=== PATIENT | female | born 1975 | race Caucasian/White ===

== ENCOUNTER 2020-02-11 11:16 | Emergency (ER) | payer MEDICAID, SELFPAY ==
--- NOTE | 2020-02-11 | US_ITS ---
EXAMINATION: ULTRASOUND RENAL CLINICAL INFORMATION: Flank pain COMPARISON: CT abdomen and pelvis 05/06/2017 TECHNIQUE: Real-time imaging of the kidneys FINDINGS: RIGHT KIDNEY: No hydronephrosis. No renal calculi or focal parenchymal lesions. The kidney measures 11.6 cm in maximum dimension. There is a 5 x 3 x 4 mm echogenic lesion in the midpole of the right kidney which could reflect a small angiomyolipoma. LEFT KIDNEY: Nonobstructing 4 x 7 x 5 mm calculus in the mid/lower pole of the left kidney.. No hydronephrosis. No renal calculi or focal parenchymal lesions. The kidney measures 11.6 cm in maximum dimension. Incidental note of a well-circumscribed echogenic lesion in the right lobe of the liver measuring 2.1 x 1.5 x 1.4 cm, most likely representing a small hemangioma. IMPRESSION: 1. No hydronephrosis. 2. Nonobstructing 7 mm calculus in the mid/lower pole of the left kidney. 3. Suspect a small 5 mm angiomyolipoma in the midpole of the right kidney. 4. Incidental note of a well-circumscribed echogenic lesion in the liver most likely representing a hemangioma.
--- NOTE | 2020-02-11 | CT_ITS ---
EXAMINATION: CT ABDOMEN AND PELVIS WITH CONTRAST CLINICAL INFORMATION: Abdomen/flank pain COMPARISON: May 06, 2017 TECHNIQUE: Multidetector volumetric images were obtained from the superior aspect of the liver through the pubic symphysis following administration 85 mL of Omnipaque 350 intravenous contrast. Sagittal and coronal reformatted images were obtained on the technologist's workstation. Oral contrast: No This CT examination was performed using dose optimization techniques as appropriate, variously including the following: *Automated exposure control *Adjustment of mA and/or kV according to patient size (this includes techniques or standardized protocols for targeted exams where dose is matched to indication/reason for exam; i.e. extremities or head) *Use of iterative reconstruction technique DLP: 479 mGy-cm FINDINGS: LUNG BASES: The visualized lung bases are unremarkable. No pleural or pericardial effusion. LIVER, GALLBLADDER, AND BILIARY TREE: The liver is normal in size, shape, and attenuation. No suspicious focal hepatic lesion or biliary ductal dilatation is present. There are a few stable low-density lesions likely representing cysts within the liver compared to prior study of May 06, 2017. The gallbladder is unremarkable with no evidence of radiopaque gallstones, gallbladder wall thickening, or obvious pericholecystic inflammatory changes. PANCREAS: Unremarkable. SPLEEN: Unremarkable. ADRENAL GLANDS: Unremarkable. KIDNEYS AND URETERS: The kidneys are normal in size, shape, and attenuation. No hydronephrosis, hydroureter, or calculi seen. No perinephric stranding. There is a 1 cm cyst seen lower pole of the right kidney. BLADDER: Unremarkable. GASTROINTESTINAL TRACT: No dilated loops of large or small bowel identified. No free air or free fluid. No evidence of acute diverticulitis or acute appendicitis. ABDOMINAL WALL: No significant hernia is appreciated. LYMPH NODES: No lymphadenopathy appreciated. VASCULAR: No significant abnormality appreciated. There are some prominent left uterine veins present. No significant calcified plaque appreciated. No abdominal aortic aneurysm. PELVIC VISCERA: Unremarkable. No free fluid. No abnormal mass. OSSEOUS STRUCTURES: No suspicious bony lesions identified. IMPRESSION: Hepatic and renal cysts. No evidence of obstructive uropathy. No renal or ureteral calculi identified.
[2020-02-11 11:32] VITALS: BP 119/85; PULSE 71; RESP 20; TEMP 37; O2SAT 96; BMI 46.8
--- NOTE | 2020-02-11 11:47 | ED.ABDPAIN ---
HPI - Abdominal Pain General Chief Complaint: Back Pain/Injury <Manish Chamberlain NP - Last Filed: 02/11/20 16:43> Stated Complaint: quest kidney stone <Manish Chamberlain NP - Last Filed: 02/11/20 16:43> Time Seen by Provider: 02/11/20 11:47 <Manish Chamberlain NP - Last Filed: 02/11/20 16:43> Source: patient <Manish Chamberlain NP - Last Filed: 02/11/20 16:43> Mode of arrival: ambulatory <Manish Chamberlain NP - Last Filed: 02/11/20 16:43> Limitations: no limitations <Manish Chamberlain NP - Last Filed: 02/11/20 16:43> History of Present Illness HPI narrative: 45-year-old female who presents ambulatory via triage with complaint of bilateral flank pain for past several days with history of kidney stones feel like having other flare. She does report that she did some strenuous activity at home while cleaning and moving furniture unsure if this is related. Reports she took Tylenol however pain became more unbearable today. <Manish Chamberlain NP - Last Filed: 02/11/20 16:43> MD elicited complaint: flank pain <Manish Chamberlain NP - Last Filed: 02/11/20 16:43> Pertinent past history: other (renal calculi ) <Manish Chamberlain NP - Last Filed: 02/11/20 16:43> Onset (ago): day(s) <Manish Chamberlain NP - Last Filed: 02/11/20 16:43> Pain Consistency: constant <Manish Chamberlain NP - Last Filed: 02/11/20 16:43> Location: L flank and R flank <Manish Chamberlain NP - Last Filed: 02/11/20 16:43> Severity: severe <Manish Chamberlain NP - Last Filed: 02/11/20 16:43> Quality: stabbing and aching <Manish Chamberlain NP - Last Filed: 02/11/20 16:43> Migration to: no migration <Manish Chamberlain NP - Last Filed: 02/11/20 16:43> Exacerbating factors: nothing and movement <Manish Chamberlain NP - Last Filed: 02/11/20 16:43> Related Data Home Medications: Previous Rx's Medication Instructions Recorded cyclobenzaprine 10 mg PO TID PRN #20 tab 02/11/20 ibuprofen [IBU] 800 mg PO Q8H PRN #30 tab 02/11/20 <Manish Chamberlain NP - Last Filed: 02/11/20 16:43> Allergies/Adverse Reactions: Allergies Allergy/AdvReac Type Severity Reaction Status Date / Time acetaminophen [From Percocet] Allergy Vomiting Verified 02/11/20 11:39 oxycodone [From Percocet] Allergy Vomiting Verified 02/11/20 11:39 Compazine Allergy Unknown seizures Uncoded 02/11/20 11:42 in 3 sisters, pt avoids From COMPAZINE Allergy Unknown UNKNOWN Uncoded 01/26/20 17:57 SILK TAPE Allergy Unknown SKIN TEARS Uncoded 01/26/20 17:57 Silk tape Allergy Unknown rash Uncoded 06/02/12 00:00 <Manish Chamberlain NP - Last Filed: 02/11/20 16:43> Review of Systems Review of Systems Constitutional: No Weight loss, No Fever, No Chills, No Night Sweats, No Fatigue, No Malaise ENT/Mouth: No Hearing loss, No Ear Pain, No Nasal Congestion, No Sinus Pain, No Hoarseness, No sore throat, No Rhinorrhea, No Swallowing Difficulty Eyes: No Eye Pain, No Swelling, No Redness, No Foreign Body, No Discharge, No Vision Changes Cardiovascular: No Chest Pain, No SOB, No Dyspnea on Exertion, No Orthopnea, No Edema, No Palpitations Respiratory: No Cough, No Sputum, No Wheezing, No Smoke Exposure, No Dyspnea Gastrointestinal: + Nausea, No Vomiting, No Diarrhea, No Constipation, No abdominal Pain, No Hematochezia, No Melena + flank pain Genitourinary: no irregular bleeding, No Dysuria, No Urinary Frequency, No Hematuria, No Urinary Incontinence, No Urgency, No Flank Pain, No Urinary Flow Changes, No Hesitancy Musculoskeletal: No joint pain, No Myalgias, No Joint Swelling + back pain Skin: No Skin Lesions, No rash Neuro: No Weakness, No Numbness, No Paresthesias, No Loss of Consciousness, No Dizziness, No Headache Psych: No Anxiety/Panic, No Depression, No SI/HI/AH/VH, No Social Issues, Heme/Lymph: No Bruising, No Bleeding,No Lymphadenopathy Endocrine: No Polyuria, No Polydipsia, No Temperature Intolerance <Manishdalila Chamberlain NP - Last Filed: 02/11/20 16:43> Yes all other systems are reviewed and are negative <Manishdalila Chamberlain NP - Last Filed: 02/11/20 16:43> Physical Exam Vital Signs and I&O and Narrative: Vital Signs and I&O: Vital Signs Temp 98.6 F 02/11/20 16:24 Pulse 50 02/11/20 16:24 Resp 16 02/11/20 16:24 BP 104/59 L 02/11/20 16:24 Pulse Ox 98 02/11/20 16:24 Intake & Output 02/11/20 02/11/20 02/12/20 06:59 18:59 06:59 Intake Total 1000 / 1000 Balance 1000 / 1000 Weight 120 kg Intake: Intake, IV Amoun t 1000 / 1000 0.9 % Sodium C hloride 1,000 ml 1000 / 1000 @ 999 mls/hr I VCONT .Q1H1M [facility] Rx#:[id number] Body Mass Index 46.8 <Manishdalila Chamberlain NP - Last Filed: 02/11/20 16:43> Vital Signs and I&O: Vital Signs Temp 98.6 F 02/11/20 16:24 Pulse 50 02/11/20 16:24 Resp 16 02/11/20 16:24 BP 104/59 L 02/11/20 16:24 Pulse Ox 98 02/11/20 16:24 Intake & Output 02/11/20 02/11/20 02/12/20 06:59 18:59 06:59 Intake Total 1000 / 1000 Balance 1000 / 1000 Weight 120 kg Intake: Intake, IV Amoun t 1000 / 1000 0.9 % Sodium C hloride 1,000 ml 1000 / 1000 @ 999 mls/hr I VCONT .Q1H1M [facility] Rx#:[id number] Body Mass Index 46.8 <Lyndon Jaramillo DO - Last Filed: 02/11/20 22:19> Course Course Hospital Course: Ultrasound finding is noted. Still having significant pain. Pain more consistent musculoskeletal however she states pain is coming back was sleeping prior to my evaluation. Pain 02/17 now go ahead and give her additional analgesia p.o.. CT of the abdomen rule out acute pathology. <Manish Chamberlain NP - Last Filed: 02/11/20 16:43> MDM - Abdominal Pain Differential Diagnosis Differential diagnosis: Likely abdominal pain, calculus of kidney, constipation and renal colic; Unlikely aortic dissection, acute appendicitis, bowel perforation, endometriosis, gastroenteritis, gastritis, mesenteric ischemia, ovarian cyst, pancreatitis, peptic ulcer disease and small bowel obstruction <Manish Chamberlain NP - Last Filed: 02/11/20 16:43> Differential diagnosis narrative:: Lumbar starin <Manish Chamberlain NP - Last Filed: 02/11/20 16:43> Medical Records Attestation: I reviewed the patient's medical records. <Manish Chamberlain NP - Last Filed: 02/11/20 16:43> Lab Data Attestation: I reviewed the patient's lab results. <Manish Chamberlain NP - Last Filed: 02/11/20 16:43> Result diagrams: : 02/11/20 11:56 02/11/20 11:56 <Manish Chamberlain NP - Last Filed: 02/11/20 16:43> Labs: Lab Results 02/11/20 02/11/20 02/11/20 Range/Units 11:56 11:56 11:56 WBC 11.3 H (4.8-10.8) X10*3/uL RBC 3.68 L (4.20-5.50) X10*6/uL Hgb 12.6 (12.0-16.0) g/dl Hct 37.0 (37-47) % MCV 100.5 H (80-98) fL MCH 34.2 H (27.0-33.0) pg MCHC 34.1 (31.0-35.0) g/dl RDW 13.1 (11.0-16.0) % Plt Count 207 (160-400) X10*3/uL MPV 10.4 (9.4-12.3) fL Immature Gran % (Auto) 0.2 (0.0-0.4) % Neut % (Auto) 74.6 H (45-73) % Lymph % (Auto) 19.1 L (20-40) % Morrison % (Auto) 5.2 (2-11) % Eos % (Auto) 0.6 (0-4) % Baso % (Auto) 0.3 (0-2) % Neut # (Auto) 8.4 H (2.0-8.3) X10*3/uL Lymph # (Auto) 2.2 (1.2-4.9) X10*3/uL Morrison # (Auto) 0.6 (0.1-1.2) X10*3/uL Eos # (Auto) 0.1 (0.0-0.4) X10*3/uL Baso # (Auto) 0.0 (0.0-0.2) X10*3/uL Abs Immat Gran (auto) 0.02 (0.00-0.03) X10*3/uL Absolute Nucleated RBC 0.000 (0.0-0.012) X10*3/uL Nucleated RBC % (auto) 0.0 (0.0-0.2) /100WBC Sodium 139 (135-145) mmol/L Potassium 4.2 (3.3-5.1) mmol/l Chloride 107 (96-108) mmol/L Carbon Dioxide 25 (22-29) mmol/L Anion Gap 11 L (12-20) BUN 11 (9-16) mg/dL Creatinine 0.64 (0.5-1.4) mg/dL Estim Creat Clear Calc 139.1 Estimated GFR > 60 Random Glucose 92 (60-115) mg/dL Calcium 8.9 (8.4-10.2) mg/dL Total Bilirubin 0.5 (0.0-1.0) mg/dL Direct Bilirubin 0.2 (0.0-0.5) mg/dL AST 13 (5-31) U/L ALT 10 (0-31) U/L Alkaline Phosphatase 65 (39-117) U/L Total Protein 6.9 (6.5-8.0) g/dL Albumin 4.1 (3.5-5.0) g/dL Urine Color YELLOW Urine Appearance HAZY Urine pH 5.0 (5.0-8.0) Ur Specific [place] >= 1.030 H (1.005-1.025) Urine Protein NEG (NEG-TRACE) MG/DL Urine Glucose (UA) NEG (NEG) MG/DL Urine Ketones NEG (NEG) MG/DL Urine Blood NEG (NEG) Urine Nitrite NEG (NEG) Ur Leukocyte Esterase NEG (NEG) Urine RBC 0 (0) /HPF Urine WBC 0 (0-4) /HPF Ur Squamous Epith Cells 3+ /LPF Urine Bacteria NONE /LPF Urine Mucus 3+ /LPF Urine Test NEGATIVE (NEGATIVE) <Manish Chamberlain NP - Last Filed: 02/11/20 16:43> Lab Results 02/11/20 02/11/20 02/11/20 Range/Units 11:56 11:56 11:56 WBC 11.3 H (4.8-10.8) X10*3/uL RBC 3.68 L (4.20-5.50) X10*6/uL Hgb 12.6 (12.0-16.0) g/dl Hct 37.0 (37-47) % MCV 100.5 H (80-98) fL MCH 34.2 H (27.0-33.0) pg MCHC 34.1 (31.0-35.0) g/dl RDW 13.1 (11.0-16.0) % Plt Count 207 (160-400) X10*3/uL MPV 10.4 (9.4-12.3) fL Immature Gran % (Auto) 0.2 (0.0-0.4) % Neut % (Auto) 74.6 H (45-73) % Lymph % (Auto) 19.1 L (20-40) % Morrison % (Auto) 5.2 (2-11) % Eos % (Auto) 0.6 (0-4) % Baso % (Auto) 0.3 (0-2) % Neut # (Auto) 8.4 H (2.0-8.3) X10*3/uL Lymph # (Auto) 2.2 (1.2-4.9) X10*3/uL Morrison # (Auto) 0.6 (0.1-1.2) X10*3/uL Eos # (Auto) 0.1 (0.0-0.4) X10*3/uL Baso # (Auto) 0.0 (0.0-0.2) X10*3/uL Abs Immat Gran (auto) 0.02 (0.00-0.03) X10*3/uL Absolute Nucleated RBC 0.000 (0.0-0.012) X10*3/uL Nucleated RBC % (auto) 0.0 (0.0-0.2) /100WBC Sodium 139 (135-145) mmol/L Potassium 4.2 (3.3-5.1) mmol/l Chloride 107 (96-108) mmol/L Carbon Dioxide 25 (22-29) mmol/L Anion Gap 11 L (12-20) BUN 11 (9-16) mg/dL Creatinine 0.64 (0.5-1.4) mg/dL Estim Creat Clear Calc 139.1 Estimated GFR > 60 Random Glucose 92 (60-115) mg/dL Calcium 8.9 (8.4-10.2) mg/dL Total Bilirubin 0.5 (0.0-1.0) mg/dL Direct Bilirubin 0.2 (0.0-0.5) mg/dL AST 13 (5-31) U/L ALT 10 (0-31) U/L Alkaline Phosphatase 65 (39-117) U/L Total Protein 6.9 (6.5-8.0) g/dL Albumin 4.1 (3.5-5.0) g/dL Urine Color YELLOW Urine Appearance HAZY Urine pH 5.0 (5.0-8.0) Ur Specific [place] >= 1.030 H (1.005-1.025) Urine Protein NEG (NEG-TRACE) MG/DL Urine Glucose (UA) NEG (NEG) MG/DL Urine Ketones NEG (NEG) MG/DL Urine Blood NEG (NEG) Urine Nitrite NEG (NEG) Ur Leukocyte Esterase NEG (NEG) Urine RBC 0 (0) /HPF Urine WBC 0 (0-4) /HPF Ur Squamous Epith Cells 3+ /LPF Urine Bacteria NONE /LPF Urine Mucus 3+ /LPF Urine Test NEGATIVE (NEGATIVE) <Lyndon Jaramillo DO - Last Filed: 02/11/20 22:19> Imaging Data CT scan - abdomen: Radiologist's impression: [address] [address] [address] Scan Report Signed Patient: Emiliano Montalvo#: [id number] : 1975Acct:[id number] Age/Sex: 45 / FADM Date: 02/11/20 Loc: HO.ED Attending Dr: Ordering Physician: Manish Chamberlain NP Date of Service: 02/11/20 Procedure(s): CT abdomen pelvis w con Accession Number(s): [id number] cc: ~ EXAMINATION: CT ABDOMEN AND PELVIS WITH CONTRAST CLINICAL INFORMATION: Abdomen/flank pain COMPARISON: May 06, 2017 TECHNIQUE: Multidetector volumetric images were obtained from the superior aspect of the liver through the pubic symphysis following administration 85 mL of Omnipaque 350 intravenous contrast. Sagittal and coronal reformatted images were obtained on the technologist's workstation. Oral contrast: No This CT examination was performed using dose optimization techniques as appropriate, variously including the following: *Automated exposure control *Adjustment of mA and/or kV according to patient size (this includes techniques or standardized protocols for targeted exams where dose is matched to indication/reason for exam; i.e. extremities or head) *Use of iterative reconstruction technique DLP: 479 mGy-cm FINDINGS: LUNG BASES: The visualized lung bases are unremarkable. No pleural or pericardial effusion. LIVER, GALLBLADDER, AND BILIARY TREE: The liver is normal in size, shape, and attenuation. No suspicious focal hepatic lesion or biliary ductal dilatation is present. There are a few stable low-density lesions likely representing cysts within the liver compared to prior study of May 06, 2017. The gallbladder is unremarkable with no evidence of radiopaque gallstones, gallbladder wall thickening, or obvious pericholecystic inflammatory changes. PANCREAS: Unremarkable. SPLEEN: Unremarkable. ADRENAL GLANDS: Unremarkable. KIDNEYS AND URETERS: The kidneys are normal in size, shape, and attenuation. No hydronephrosis, hydroureter, or calculi seen. No perinephric stranding. There is a 1 cm cyst seen lower pole of the right kidney. BLADDER: Unremarkable. GASTROINTESTINAL TRACT: No dilated loops of large or small bowel identified. No free air or free fluid. No evidence of acute diverticulitis or acute appendicitis. ABDOMINAL WALL: No significant hernia is appreciated. LYMPH NODES: No lymphadenopathy appreciated. VASCULAR: No significant abnormality appreciated. There are some prominent left uterine veins present. No significant calcified plaque appreciated. No abdominal aortic aneurysm. PELVIC VISCERA: Unremarkable. No free fluid. No abnormal mass. OSSEOUS STRUCTURES: No suspicious bony lesions identified. IMPRESSION: Hepatic and renal cysts. No evidence of obstructive uropathy. No renal or ureteral calculi identified. Dictated By:RICK FOURNIER MD Signed By:<Electronically signed by RICK FOURNIER MD in OV>02/11/20 1540 DD/ 1438 TD/TT: Drop Hammer Operator Helper: FAROOQ <Manish Chamberlain NP - Last Filed: 02/11/20 16:43> US - abdomen: Radiologist's impression: [place] [id number] Ultrasound Report Signed Patient: Emiliano Montalvo#: [id number] : 1975Acct:[id number] Age/Sex: 45 / FADM Date: 02/11/20 Loc: HO.ED Attending Dr: Ordering Physician: Manish Chamberlain NP Date of Service: 02/11/20 Procedure(s): US renal BI Accession Number(s): [id number] cc: ~ EXAMINATION: ULTRASOUND RENAL CLINICAL INFORMATION: Flank pain COMPARISON: CT abdomen and pelvis 05/06/2017 TECHNIQUE: Real-time imaging of the kidneys FINDINGS: RIGHT KIDNEY: No hydronephrosis. No renal calculi or focal parenchymal lesions. The kidney measures 11.6 cm in maximum dimension. There is a 5 x 3 x 4 mm echogenic lesion in the midpole of the right kidney which could reflect a small angiomyolipoma. LEFT KIDNEY: Nonobstructing 4 x 7 x 5 mm calculus in the mid/lower pole of the left kidney.. No hydronephrosis. No renal calculi or focal parenchymal lesions. The kidney measures 11.6 cm in maximum dimension. Incidental note of a well-circumscribed echogenic lesion in the right lobe of the liver measuring 2.1 x 1.5 x 1.4 cm, most likely representing a small hemangioma. IMPRESSION: 1. No hydronephrosis. 2. Nonobstructing 7 mm calculus in the mid/lower pole of the left kidney. 3. Suspect a small 5 mm angiomyolipoma in the midpole of the right kidney. 4. Incidental note of a well-circumscribed echogenic lesion in the liver most likely representing a hemangioma. Dictated By:ROMÁN DACOSTA MD Signed By:<Electronically signed by ROMÁN DACOSTA MD in OV>02/11/20 1350 DD/ 1320 TD/TT: Drop Hammer Operator Helper: ELDER <Manish Chamberlain NP - Last Filed: 02/11/20 16:43> Discharge Plan Discharge Clinical Impression: Strain of lumbar region Qualifiers: Encounter type: initial encounter Qualified Code(s): S39.012A - Strain of muscle, fascia and tendon of lower back, initial encounter <Manish Chamberlain NP - Last Filed: 02/11/20 16:43> Patient Disposition: Home, Self-Care <Manish Chamberlain NP - Last Filed: 02/11/20 16:43> Instructions: Acute Low Back Pain (ED) <Manish Chamberlain NP - Last Filed: 02/11/20 16:43> Additional Instructions: gentle stretching Warm compresses Take medication prescribed No straight activity Follow-up as discussed Return if any concerns or worsening symptoms Thank you <Manish Chamberlain NP - Last Filed: 02/11/20 16:43> Prescriptions: New ibuprofen [IBU] 800 mg tablet 800 mg PO Q8H PRN (Reason: pain) Qty: 30 RF: 0 cyclobenzaprine 10 mg tablet 10 mg PO TID PRN (Reason: muscle spasm) Qty: 20 RF: 0 <Manish Chamberlain NP - Last Filed: 02/11/20 16:43> Interventions: ED Discharge Assessment Last Done: 02/11/20 16:32 <Manish Chamberlain NP - Last Filed: 02/11/20 16:43> Discharge Date/Time: 02/11/20 16:33 <Manish Chamberlain NP - Last Filed: 02/11/20 16:43> FOR[facility] Past Medical History Medical History: Medical History (Updated 02/11/20 @ 15:57 by Manish Chamberlain NP) Kidney calculi <Manish Chamberlain NP - Last Filed: 02/11/20 16:43> Social History Social History: Social History Advance Directives: No Advance Directives Information Provided: No <Manish Chamberlain NP - Last Filed: 02/11/20 16:43>
[2020-02-11] MEDS: Lidocaine 4 % Patch ADH..PATCH 1 PATCH TRANSDERMA (12:00)
[2020-02-11] MEDS: 0.9 % Sodium Chloride 1,000 ML 999 ML IVCONT (12:00)
[2020-02-11] MEDS: Ketorolac Tromethamine 15 MG/ML VIAL 30 MG IV (12:00)
[2020-02-11 12:20] LABS: MANUAL DIFF FLAG NO
[2020-02-11 12:21] LABS: Glucose Urine UA NEG (NEG); Leukocyte Esterase Urine NEG (NEG); Nitrite Urine NEG (NEG); Specific Gravity - Urine >= 1.030 (1.005-1.025); Urine Blood NEG (NEG); Urine Ketones NEG (NEG); Urine Protein NEG (NEG-TRACE)
[2020-02-11 12:24] LABS: Appearance Urine HAZY; Color Urine YELLOW
[2020-02-11 12:28] LABS: Basophils Percent Auto 0.3 % (0-2); Eosinophils Absolute Auto 0.1 X10*3/uL (0.0-0.4); Eosinophils Percent Auto 0.6 % (0-4); Hemoglobin 12.6 g/dl (12.0-16.0); Imm Gran Abs Auto 0.02 X10*3/uL (0.00-0.03); Imm Gran Pct Auto 0.2 % (0.0-0.4); Lymphocytes Absolute Auto 2.2 X10*3/uL (1.2-4.9); Lymphocytes Percent Auto 19.1 % (20-40); Mean Corpuscular HGB Conc 34.1 g/dl (31.0-35.0); Mean Corpuscular Hemoglobin 34.2 pg (27.0-33.0); Mean Corpuscular Volume 100.5 fL (80-98); Mean Platelet Volume 10.4 fL (9.4-12.3); Monocytes Absolute Auto 0.6 X10*3/uL (0.1-1.2); Monocytes Percent Auto 5.2 % (2-11); Neutrophils Absolute Auto 8.4 X10*3/uL (2.0-8.3); Neutrophils Percent Auto 74.6 % (45-73); Platelet Count 207 X10*3/uL (160-400); Red Blood Count 3.68 X10*6/uL (4.20-5.50); Red Cell Distribution Width 13.1 % (11.0-16.0); UPreg QC Valid YES; Urine Pregnancy NEGATIVE (NEGATIVE); White Blood Count 11.3 X10*3/uL (4.8-10.8)
[2020-02-11 12:32] LABS: Mucus Urine 3+ /LPF; RBC Urine 0 /HPF (0); Squamous Epithelial Cell Urine 3+ /LPF; WBC Urine 0 /HPF (0-4)
[2020-02-11 12:45] LABS: Alanine Aminotransferase 10 U/L (0-31); Albumin Level 4.1 g/dL (3.5-5.0); Alkaline Phosphatase 65 U/L (39-117); Anion Gap 11 (12-20); Aspartate Amino Transferase 13 U/L (5-31); Bilirubin Direct 0.2 mg/dL (0.0-0.5); Bilirubin Total 0.5 mg/dL (0.0-1.0); Blood Urea Nitrogen 11 mg/dL (9-16); Calcium 8.9 mg/dL (8.4-10.2); Carbon Dioxide 25 mmol/L (22-29); Chloride 107 mmol/L (96-108); Creatinine Clr Calc Pharmacy 139.1; Estimated Glomerular Filt Rate > 60; Glucose Random 92 mg/dL (60-115); Potassium 4.2 mmol/l (3.3-5.1); Sodium 139 mmol/L (135-145); Total Protein 6.9 g/dL (6.5-8.0)
[2020-02-11 12:52] VITALS: BP 97/59; PULSE 65; RESP 16; TEMP 36.2; O2SAT 100
[2020-02-11 14:08] VITALS: BP 92/64; PULSE 63; RESP 18; O2SAT 100
[2020-02-11] MEDS: diazePAM 5 MG TABLET PO (14:33)
[2020-02-11] MEDS: iohexoL 350 MG/ML 100 ML INFUS..BTL IV (14:54)
[2020-02-11 16:24] VITALS: BP 104/59; PULSE 50; RESP 16; TEMP 37; O2SAT 98
== END 2020-02-11 16:33 | disposition home or self-care (01) ==
PROVIDERS: Nurse Practitioner Primary Care; Emergency Provider Emergency Medicine
DX: S39.012A Strain of muscle, fascia and tendon of lower back, initial encounter (principal); X58.XXXA Exposure to other specified factors, initial encounter; Y93.9 Activity, unspecified; Y92.9 Unspecified place or not applicable; Y99.9 Unspecified external cause status
CPT/HCPCS: 36415; 74177; 76775; 80048; 80076; 81001; 81025; 85025; 96361; 96374; 99285; J1885

== ENCOUNTER 2020-02-18 15:18 | Emergency (ER) | payer MEDICAID, SELFPAY ==
[2020-02-18 15:31] VITALS: BP 117/83; PULSE 95; RESP 18; TEMP 36.8; O2SAT 99; BMI 20.2
[2020-02-18 15:58] VITALS: BP 104/63; PULSE 78; RESP 18; TEMP 36.4; O2SAT 99
[2020-02-18] MEDS: predniSONE 20 MG TABLET 60 MG PO (17:24)
--- NOTE | 2020-02-18 17:24 | ED.BACK ---
HPI - Back Pain/Injury General Chief Complaint: Back Pain/Injury Stated Complaint: Back Pain Time Seen by Provider: 02/18/20 17:04 History of Present Illness HPI Narrative: patient complains of pain in the lower back that radiates into both thighs, she has no injury, there is no numbness or weakness, there is no bowel or bladder changes She was seen here recently and evaluated for possible kidney stone with a negative evaluation and told her pain is most likely muscle spasm in her back and was given Flexeril and Motrin The Flexeril helps a little bit but the pain is still very severe and she returns Related Data Previous Rx's Medication Instructions Recorded cyclobenzaprine 10 mg PO TID PRN #20 tab 02/11/20 ibuprofen [IBU] 800 mg PO Q8H PRN #30 tab 02/11/20 cyclobenzaprine 5 mg PO TID PRN #30 tab 02/18/20 hydrocodone-acetaminophen 1 - 2 tab PO Q6H PRN #20 tab 02/18/20 ibuprofen 600 mg PO Q6H PRN #20 tab 02/18/20 prednisone 40 mg PO DAILY 4 Days #8 tab 02/18/20 Allergies Allergy/AdvReac Type Severity Reaction Status Date / Time acetaminophen [From Percocet] Allergy Vomiting Verified 02/11/20 11:39 oxycodone [From Percocet] Allergy Vomiting Verified 02/11/20 11:39 Compazine Allergy Unknown seizures Uncoded 02/11/20 11:42 in 3 sisters, pt avoids From COMPAZINE Allergy Unknown UNKNOWN Uncoded 01/26/20 17:57 SILK TAPE Allergy Unknown SKIN TEARS Uncoded 01/26/20 17:57 Silk tape Allergy Unknown rash Uncoded 06/02/12 00:00 Review of Systems Review of Systems: there is no numbness no weakness no paresthesia no fever no chills no changes to bowel or bladder, no burning with urination no frequency no chest pain no abdominal pain no nausea no vomiting PMFSH Past Medical History Source: nursing notes reviewed Medical History (Updated 02/18/20 @ 17:04 by CHLOE Robertson) Hernia Kidney calculi Social History Social History Smoking Status: Current every day smoker Smoked in Last 30 Days: Yes Substance Use Type: Marijuana and Prescription Drugs Substance Use Frequency: Monthly Advance Directives: No Advance Directives Information Provided: No Physical Exam Vital Signs: Vital Signs: Vital Signs Temp Pulse Resp BP Pulse Ox 02/18/20 15:58 97.5 F 78 18 104/63 99 02/18/20 15:31 98.3 F 95 18 117/83 99 Body Mass Index 20.2 patient is uncomfortable appearing, but no acute distress, A&O x3, interacts appropriately Normocephalic atraumatic neck is supple and nontender The chest is nontender Respiratory there is no respiratory distress Abdomen is soft and nontender next time back there is left-sided low back tenderness soft tissue tenderness, there is no CVA tenderness there is no bony tenderness, the skin is normal in appearance without any wound or redness, no rash Extremities are full range of motion x4 with a normal gait Neuro is a and O x3, no numbness no weakness, no focal deficit Course Course Course Narrative: history and exam are consistent with sciatica Discharge Plan Discharge Clinical Impression: Sciatica Qualifiers: Laterality: right Qualified Code(s): M54.31 - Sciatica, right side Patient Disposition: Home, Self-Care Additional Instructions: I believe your pain in her back is from pinched nerves in lower back We are trying prednisone for several days which may reduce inflammation around the nerve and help with the shooting pain into her legs Follow with primary doctor for possible physical therapy Chiropractor, massage, acupuncture are all helpful This type of pain usually gets better after several weeks Return any time any worse condition or concerns Prescriptions: New hydrocodone-acetaminophen 5-325 mg tablet 1 - 2 tab PO Q6H PRN (Reason: pain) Qty: 20 RF: 0 cyclobenzaprine 5 mg tablet 5 mg PO TID PRN (Reason: muscle spasm) Qty: 30 RF: 0 ibuprofen 600 mg tablet 600 mg PO Q6H PRN (Reason: pain) Qty: 20 RF: 0 prednisone 20 mg tablet 40 mg PO DAILY 4 Days Qty: 8 RF: 0 No Action ibuprofen [IBU] 800 mg tablet 800 mg PO Q8H PRN (Reason: pain) Qty: 30 RF: 0 cyclobenzaprine 10 mg tablet 10 mg PO TID PRN (Reason: muscle spasm) Qty: 20 RF: 0 Stand Alone Forms: Work/School Release Interventions: ED Discharge Assessment Last Done: 02/18/20 17:37 Discharge Date/Time: 02/18/20 17:30
[2020-02-18] MEDS: Ketorolac Tromethamine 30 MG/ML VIAL IM (17:25)
== END 2020-02-18 17:30 | disposition home or self-care (01) ==
PROVIDERS: Emergency Provider Emergency Medicine
DX: M54.31 Sciatica, right side (principal); M54.5 Low back pain; F17.200 Nicotine dependence, unspecified, uncomplicated; Z71.6 Tobacco abuse counseling; Z79.899 Other long term (current) drug therapy
CPT/HCPCS: 96372; 99284; J1885

== ENCOUNTER 2021-09-12 06:54 | Emergency (ER) | payer MEDICAID, SELFPAY ==
[2021-09-12 07:04] VITALS: BP 146/92; PULSE 83; RESP 18; TEMP 36.8; O2SAT 98; BMI 24.4
[2021-09-12 07:10] VITALS: BP 133/72; PULSE 64; RESP 18; TEMP 37.2; O2SAT 98
--- NOTE | 2021-09-12 07:10 | ED.ANXIETY ---
HPI - Anxiety General Chief Complaint: Anxiety Stated Complaint: Anxious Time Seen by Provider: 09/12/21 06:56 Source: patient Mode of arrival: ambulatory Limitations: no limitations History of Present Illness HPI narrative: felt off yesterday, not well wasn't sure if it was a fever - took tylenol and motrin no relief, tried robitussin before bed. Has been drinking small amounts of red bull. denies Rx meds or anything other than home grown THC - couldn't sleep drove around with a friend at 430am - smoked THC. Feels shaky and like she is moving around. 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 cannot think of any other exposures MD complaint: anxiety (feels weird moving around) Onset (ago): day(s) (yesterday ) Symptoms: other (shaky, moving around) Severity: moderate Quality: intermittent Place: work History of similar episodes: No Provoking factors: none known Relieving factors: nothing Exacerbating factors: nothing Associated symptoms: denies other symptoms Related Data Previous Rx's Medication Instructions Recorded cyclobenzaprine 10 mg tablet 10 mg PO TID PRN #20 tab 02/11/20 ibuprofen 800 mg tablet (IBU) 800 mg PO Q8H PRN #30 tab 02/11/20 cyclobenzaprine 5 mg tablet 5 mg PO TID PRN #30 tab 02/18/20 hydrocodone 5 mg-acetaminophen 325 1 - 2 tab PO Q6H PRN #20 tab 20 mg tablet ibuprofen 600 mg tablet 600 mg PO Q6H PRN #20 tab 02/18/20 prednisone 20 mg tablet 40 mg PO DAILY 4 Days #8 tab 02/18/20 Allergies Allergy/AdvReac Type Severity Reaction Status Date / Time acetaminophen [From Percocet] Allergy Vomiting Verified 02/11/20 11:39 oxycodone [From Percocet] Allergy Vomiting Verified 02/11/20 11:39 Compazine Allergy Unknown seizures Uncoded 02/11/20 11:42 in 3 sisters, pt avoids From COMPAZINE Allergy Unknown UNKNOWN Uncoded 01/26/20 17:57 SILK TAPE Allergy Unknown SKIN TEARS Uncoded 01/26/20 17:57 Silk tape Allergy Unknown rash Uncoded 06/02/12 00:00 Review of Systems Review of Systems: Constitutional : No Weight loss, No Fever, pos Chills, No Fatigue, No Malaise ENT/Mouth : No sore throat, No Rhinorrhea Eyes: No Eye Pain, No Swelling, No Redness Cardiovascular : No Chest Pain, No SOB, No Dyspnea on Exertion, No Orthopnea, No Edema, No Palpitations Respiratory : No Cough, No Sputum, No Wheezing Gastrointestinal : No Nausea, No Vomiting, No Diarrhea, No Constipation, No abdominal Pain, No Hematochezia, No Melena Genitourinary : No Dysuria, No Urinary Frequency, No Hematuria, Musculoskeletal : No joint pain, No Myalgias, No Joint Swelling Skin : No Skin Lesions, No rash Neuro : No Weakness, No Numbness, No Dizziness, No Headache, pos movements Psych : pos Anxiety/Panic, No Depression Heme/Lymph: No Bruising, No Bleeding,No Lymphadenopathy Endocrine : No Polyuria, No Polydipsia All other systems reviewed and are negative [facility] Past Medical History Attestation statement: The following information was validated with the patient. Medical History Hernia Kidney calculi Social History Social History (Updated 09/12/21 @ 07:17 by Marianne Lawson DO) Patient Tobacco Use Status: Current someday Tobacco user Substance Use Type: Marijuana and Prescription Drugs Advance Directives: No Advance Directives Information Provided: Yes Physical Exam Vital Signs: Vital Signs: Last Vital Signs Temp 98.7 F 09/12/21 08:22 Pulse 66 09/12/21 08:22 Resp 18 09/12/21 08:22 BP 113/63 09/12/21 08:22 Pulse Ox 98 09/12/21 08:22 BMI result Body Mass Index 24.4 Appearance: Alert. Oriented X3. No acute distress. Anxious Eyes: Pupils equal, round and reactive to light. 4mm ENT: Pharynx normal. Neck: Normal inspection. Neck supple. CVS: Normal heart rate and rhythm. Pulses normal. Respiratory: No respiratory distress. Breath sounds normal. Abdomen: Soft and nontender. Skin: Skin warm and dry. Normal skin color. Normal skin turgor. Extremities: No lower extremity edema. No calf ttp Neuro: Oriented X 3. No motor deficit. No sensory deficit. intermittent movements of extremities does not appear dystonic in nature Course Course Course Narrative: vaccinated x 1 - has no risk factors based on [place]oth[place] form repeat motrin and ativan for anxiety 98% on RA patient feels better stable for DC MDM - Anxiety MDM Narrative Medical decision making narrative: 46 yo female with anxiety and jerking movements denies possibility of Rx abuse or cocaine but she appears anxious - no fevers at this time. Will obtain COVID/FLU , given tylenol and ativan. I have asked for a drug screen as well. Suspect possible drug side effect at this time vs viral infection with chills. Lab Data Labs: Lab Results 09/12/21 09/12/21 09/12/21 Range/Units 07:15 07:15 07:27 Urine Opiates Screen Not Detected (Not Detect) Urine Fentanyl Screen Not Detected (Not Detect) Ur Barbiturates Screen Not Detected (Not Detect) Ur Phencyclidine Scrn Not Detected (Not Detect) Ur Amphetamines Screen Not Detected (Not Detect) U Benzodiazepines Scrn Not Detected (Not Detect) Urine Cocaine Screen Not Detected (Not Detect) U Marijuana (THC) Screen POSITIVE H (Not Detect) COVID-19 (CARLOS) Positive A (Negative) COVID-19 Clin Com See Note Influenza Type A (LESLIE) Negative (Negative) Influenza Type B (LESLIE) Negative (Negative) Influenza A & B Note See Note Discharge Plan Discharge Clinical Impression: COVID-19, Acute anxiety Patient Disposition: Home, Self-Care Instructions: Anxiety (ED), COVID-19 (Coronavirus Disease 2019) (ED) Additional Instructions: return to ED for any worsening symptoms or concerns wear a mask protect others Prescriptions: No Action ibuprofen [IBU] 800 mg tablet 800 mg PO Q8H PRN (Reason: pain) Qty: 30 0RF cyclobenzaprine 10 mg tablet 10 mg PO TID PRN (Reason: muscle spasm) Qty: 20 0RF hydrocodone-acetaminophen 5-325 mg tablet 1 - 2 tab PO Q6H PRN (Reason: pain) Qty: 20 0RF Rx Instructions: this medication may cause drowsiness, no driving for 6 hours after taking cyclobenzaprine 5 mg tablet 5 mg PO TID PRN (Reason: muscle spasm) Qty: 30 0RF Rx Instructions: this medication may cause drowsiness, no driving for 8 hours after taking ibuprofen 600 mg tablet 600 mg PO Q6H PRN (Reason: pain) Qty: 20 0RF prednisone 20 mg tablet 40 mg PO DAILY 4 Days Qty: 8 0RF Stand Alone Forms: Work/School Release Interventions: ED Discharge Assessment Last Done: 09/12/21 09:38 Discharge Date/Time: 09/12/21 09:39
[2021-09-12] MEDS: Acetaminophen 325 MG TABLET 650 MG PO (07:19)
[2021-09-12] MEDS: LORazepam 1 MG TABLET PO ×2 (07:19→08:16)
[2021-09-12 07:36] LABS: COVID-19 Test Positive (Negative); IDNOW Serial# 16C4AD1C; Influenza A Negative (Negative); Influenza B2 Negative (Negative)
[2021-09-12 07:48] LABS: Amphetamine Screen Urine Not Detected (Not Detect); Barbiturates, Urine Not Detected (Not Detect); Benzodiazepines Screen Urine Not Detected (Not Detect); Cannabinoid Screen Urine POSITIVE (Not Detect); Cocaine Screen Urine Not Detected (Not Detect); Fentanyl, urine Not Detected (Not Detect); Opiate Screen Urine Not Detected (Not Detect); Phencyclidine Screen Urine Not Detected (Not Detect)
[2021-09-12] MEDS: Ibuprofen 600 MG TABLET PO (08:16)
[2021-09-12 08:18] VITALS: BP 113/63; PULSE 66; RESP 18; TEMP 37.1
[2021-09-12 08:22] VITALS: BP 113/63; PULSE 66; RESP 18; TEMP 37.1; O2SAT 98
== END 2021-09-12 09:39 | disposition home or self-care (01) ==
PROVIDERS: Emergency Provider Emergency Medicine
DX: U07.1 COVID-19 (principal); F41.9 Anxiety disorder, unspecified; Z79.899 Other long term (current) drug therapy
CPT/HCPCS: 80307; 87502; 87635; 99283; 99284

== ENCOUNTER 2023-04-20 11:15 | Outpatient (REF) | payer MEDICAID, SELFPAY ==
--- NOTE | ~2023-04-20 | XR_ITS ---
EXAMINATION: XR LUMBOSACRAL SPINE CLINICAL INFORMATION: Low back pain. COMPARISON: CT abdomen/pelvis 02/11/2020. TECHNIQUE: Three views of the lumbosacral spine. FINDINGS: No evidence of acute compression deformity or traumatic subluxation. Mild intervertebral disc height loss and facet arthropathy at L5-S1. Minimally increased left greater than right sclerosis of the SI joints with no evidence of asymmetric widening. No significant paraspinal soft tissue abnormality. XR/XR lumbar spine 2-3V IMPRESSION: 1. No acute compression deformity or malalignment. 2. Mild lumbar spondylosis at L5-S1. 3. Minimally increased sclerosis of the SI joints which could be related with degenerative changes or sacroiliitis.
== END 2023-04-20 11:16 | disposition home or self-care (01) ==
LOC: HO.HMGCX 11:15
PROVIDERS: PCP Internal Medicine; Visit Provider Internal Medicine
DX: M54.50 Low back pain, unspecified (principal)
CPT/HCPCS: 72100

== ENCOUNTER 2023-07-13 08:04 | Outpatient (REF) | payer MEDICAID, SELFPAY ==
--- NOTE | ~2023-07-13 | US_ITS ---
EXAMINATION: US ABDOMEN COMPLETE CLINICAL INFORMATION: Question cyst, lesion seen on CT scan. COMPARISON: CT abdomen and pelvis and renal ultrasound 02/11/2020. TECHNIQUE: Real-time imaging of the abdominal viscera. FINDINGS: PANCREAS: Tail obscured. ABDOMINAL AORTA: The proximal, mid, and distal segments are normal in caliber. INFERIOR VENA CAVA: Visualized portions are normal. LIVER: The liver is normal in size. The liver contour is normal. There is diffuse increased liver parenchymal echogenicity, consistent with hepatic steatosis. Lobulated hyperechoic right hepatic lesion measures 2.0 1.8 x 1.6 cm. Right hepatic cyst measures 2.0 x 1.3 x 1.3 cm. There is no intrahepatic biliary duct dilatation seen. GALLBLADDER: The gallbladder is physiologically distended without evidence of stones, sludge, polyps, wall thickening or pericholecystic fluid. COMMON BILE DUCT: Normal in caliber measuring 0.2 cm in diameter. RIGHT KIDNEY: 6 mm nonobstructing lower pole calculus. Round cortically based hyperechoic lesion measures 0.5 x 0.5 x 0.3 cm. No hydronephrosis or focal parenchymal lesions. The kidney measures 13.1 cm in maximum dimension. LEFT KIDNEY: 7 mm nonobstructing lower pole calculus. No hydronephrosis or focal parenchymal lesions. The kidney measures 12.4 cm in maximum dimension. SPLEEN: The spleen measures 8.0 cm in maximum dimension. FREE FLUID: None. US/US abdomen complete IMPRESSION: Hyperechoic right hepatic lesion measuring 2.0 x 1.8 x 1.6 cm likely hepatic hemangioma. Round cortically based hyperechoic right renal lesion measuring 0.5 x 0.5 x 0.3 cm likely angiomyolipoma. Bilateral nonobstructing renal calculi. No hydronephrosis.
== END 2023-07-13 08:05 | disposition home or self-care (01) ==
LOC: HO.US 08:04
PROVIDERS: PCP Internal Medicine; Visit Provider Internal Medicine
DX: Q44.6 Cystic disease of liver (principal)
CPT/HCPCS: 76700